=== PATIENT | female | born 1990 | race African-American/Black ===

== ENCOUNTER 2016-10-11 15:31 | Emergency (ER) | payer OTHER ==
[2016-10-11 15:43] VITALS: BP 127/66; PULSE 127; TEMP 98.6; BMI 31.7
[2016-10-11] MEDS ORDERED: LORazepam 1 MG TABLET PO ONE (16:28)
--- NOTE | 2016-10-11 16:31 | PDOC ---
History of Present Illness - General History Source: Patient, Old Records Exam Limitations: No Limitations - History of Present Illness Initial Comments: 10/11/16 17:20 The patient is a 26 year old female, with a significant past medical history of anxiety, depression and frequent panic attacks, who presents to the emergency department with left sided chest discomfort secondary to anxiety which began earlier today. The patient states that she has had increased stressors at home recently and notes that her symptoms feel similar to her prior panic attacks. The patient denies fever, chills, shortness of breath, nausea or vomiting. Allergies: None reported. Past Surgical History: Cardiac surgery x 1. Social History: Current everyday smoker. Denies alcohol or drug use. PCP: Dr. Diop <Annette Pizarro - Last Filed: 10/11/16 17:22> - General History Source: Patient Exam Limitations: No Limitations <Morgan Schuler - Last Filed: 10/11/16 18:37> - General Chief Complaint: Chest Pain Stated Complaint: CHEST PAIN/Anxiety Time Seen by Provider: 10/11/16 16:23 Past History <Annette Pizarro - Last Filed: 10/11/16 17:22> - Past Medical History Asthma: No Cancer: No Cardiac Disorders: No Diabetes: No HTN: Yes (states after ) Psychiatric Problems: Yes (Depression/Anxiety/Bipolar) Seizures: No Thyroid Disease: No - Surgical History Cardiac Surgery: Yes (x1) - Immunization History Immunization Up to Date: Yes - Psycho/Social/Smoking Cessation Hx Anxiety: No Suicidal Ideation: No Smoking History: Current every day smoker Have you smoked in the past 12 months: Yes Number of Cigarettes Smoked Daily: 10 Information on smoking cessation initiated: Yes 'Breaking Loose' booklet given: 10/11/16 Hx Alcohol Use: No Drug/Substance Use Hx: No Substance Use Type: None Hx Substance Use Treatment: No <Morgan Schuler - Last Filed: 10/11/16 18:37> - Past Medical History Allergies/Adverse Reactions: Allergies Allergy/AdvReac Type Severity Reaction Status Date / Time No Known Allergies Allergy Verified 10/11/16 15:40 Home Medications: Ambulatory Orders Duloxetine HCl [Cymbalta -] 120 mg PO DAILY 01/23/16 Lurasidone HCl [Latuda] 120 mg PO HS 01/23/16 Clonazepam [Klonopin] 2 mg PO DAILY 04/27/16 Dextroamphetamine/Amphetamine [Adderall 10 mg Tablet] 10 mg PO DAILY 04/27/16 Lorazepam [Ativan] 1 mg PO BID PRN #4 tablet MDD 2 10/11/16 Review of Systems - Review of Systems Able to Perform ROS?: Yes Comments:: 10/11/16 16:52 GENERAL/CONSTITUTIONAL: +Anxiety. No fever or chills. No weakness. HEAD, EYES, EARS, NOSE AND THROAT: No change in vision. No ear pain or discharge. No sore throat. CARDIOVASCULAR: +Chest discomfort. No shortness of breath. RESPIRATORY: No cough, wheezing, or hemoptysis. GASTROINTESTINAL: No nausea, vomiting, diarrhea or constipation. GENITOURINARY: No dysuria, frequency, or change in urination. MUSCULOSKELETAL: No joint or muscle swelling or pain. No neck or back pain. SKIN: No rash. NEUROLOGIC: No headache, vertigo, loss of consciousness, or change in strength/ sensation. ENDOCRINE: No increased thirst. No abnormal weight change. HEMATOLOGIC/LYMPHATIC: No anemia, easy bleeding, or history of blood clots. ALLERGIC/IMMUNOLOGIC: No hives or skin allergy. <Annette Pizarro - Last Filed: 10/11/16 17:22> *Physical Exam - Vital Signs Last Vital Signs Temp Pulse Resp BP Pulse Ox 98.6 F 127 H 18 127/66 98 10/11/16 15:39 10/11/16 15:39 10/11/16 15:39 10/11/16 15:39 10/11/16 15:39 - Physical Exam Comments: 10/11/16 16:37 GENERAL: Anxious. Awake, alert, and fully oriented, in no acute distress. HEAD: No signs of trauma. EYES: PERRLA, EOMI, sclera anicteric, conjunctiva clear. ENT: Auricles normal inspection, hearing grossly normal, nares patent, oropharynx clear without exudates. Moist mucosa. NECK: Normal ROM, supple, no lymphadenopathy, JVD, or masses. LUNGS: Breath sounds equal, clear to auscultation bilaterally. No wheezes, and no crackles. HEART: Regular rate and rhythm, normal S1 and S2, no murmurs, rubs or gallops. ABDOMEN: Soft, nontender, normoactive bowel sounds. No guarding, no rebound. No masses. EXTREMITIES: Normal range of motion, no edema. No clubbing or cyanosis. No cords , erythema, or tenderness. NEUROLOGICAL: Cranial nerves II through XII grossly intact. Normal speech, normal gait. SKIN: Warm, dry, normal turgor, no rashes or lesions noted. <Annette Pizarro - Last Filed: 10/11/16 17:22> - Vital Signs Last Vital Signs Temp Pulse Resp BP Pulse Ox 98.6 F 127 H 18 127/66 98 10/11/16 15:39 10/11/16 15:39 10/11/16 15:39 10/11/16 15:39 10/11/16 15:39 <Morgan Schuler - Last Filed: 10/11/16 18:37> Heart Score/ECG Review - History History: Slightly suspicious - Electrocardiogram EKG: Normal - Age Age: </= 45 - Risk Factors Based on the list above the patient has:: No risk factors known #1 ECG reviewed & interpreted by me at: 17:00 10/11/16 18:19 NSR 105, T wave flat III, normal axis, normal intervals, QTC 473 msec <Morgan Schuler - Last Filed: 10/11/16 18:37> Medical Decision Making - Medical Decision Making 10/11/16 16:29 A portion of this note was written by my scribe, under my supervision. Vital Signs Temp Pulse Resp BP Pulse Ox 98.6 F 127 H 18 127/66 98 10/11/16 15:39 10/11/16 15:39 10/11/16 15:39 10/11/16 15:39 10/11/16 15:39 26 year old female with history of anxiety and frequent panic attacks p/w anxiety. The patient reports that she has some stressors at home and that frequently manifests as left sided chest discomfort. No associated SOB. She reports that this is the same exact symptoms as all of her prior anxiety attacks. Denies SI/HI. Pt has not had her klonipin and is awaiting a psych appointment. She has no cardiac history. Though the HR is noted to be 127, I suspect this is likely 2/2 anxiety. Will obtain ECG and given ativan and reassess. If persistently tachycardic, will consider other diagnostic testing, ie blood tests. 10/11/16 18:34 The patient reports significant relief. HR has improved to mid 90s on my repeat physical exam. Will give her a 2 day supply and a referral to a psychiatrist. She will go home by cab. I discussed the physical exam findings, ancillary test results and final diagnoses with the patient. I answered all of the patient's questions. The patient was satisfied with the care received and felt comfortable with the discharge plan and treatment plan. The patient will call their primary care physician within 24 hours to arrange follow-up and will return to the Emergency Department with any new, persistant or worsening symptoms. <Morgan Schuler - Last Filed: 10/11/16 18:37> *DC/Admit/Observation/Transfer - Attestations Scribe Attestion: 10/11/16 16:37 Documentation prepared by Annette Pizarro, acting as medical scheduler for Morgan Schuler MD. <Annette Pizarro - Last Filed: 10/11/16 17:22> - Discharge Dispostion Admit: No <Morgan Schuler - Last Filed: 10/11/16 18:37> Diagnosis at time of Disposition: Anxiety - Discharge Dispostion Disposition: HOME Condition at time of disposition: Improved - Prescriptions Prescriptions: Lorazepam [Ativan] 1 mg PO BID PRN #4 tablet MDD 2 PRN Reason: Anxiety - Referrals Referrals: Shirley Diop MD [Primary Care Provider] - Dirk Balderas MD [Staff Physician] - - Patient Instructions Printed Discharge Instructions: DI for Anxiety -- Adult Additional Instructions: Please follow up with a psychiatrist.
[2016-10-11] MEDS ORDERED: LORazepam 0.5 MG TABLET ONE (17:57)
--- NOTE | 2016-10-12 09:27 | EKG ---
Test Reason : Blood Pressure : / mmHG Vent. Rate : 105 BPM Atrial Rate : 105 BPM P-R Int : 174 ms QRS Dur : 078 ms QT Int : 358 ms P-R-T Axes : 057 066 045 degrees QTc Int : 473 ms SINUS TACHYCARDIA POSSIBLE LEFT ATRIAL ENLARGEMENT NONSPECIFIC T WAVE ABNORMALITY WHEN COMPARED WITH ECG OF 11-OCT-2016 15:39, NO SIGNIFICANT CHANGE WAS FOUND Confirmed by ELVIE TOMAS MD ([id number]) on 10/12/2016 9:27:19 AM Referred By: Confirmed By:ELVIE TOMAS MD
--- NOTE | 2016-10-15 23:30 | EKG ---
Test Reason : Blood Pressure : / mmHG Vent. Rate : 117 BPM Atrial Rate : 117 BPM P-R Int : 156 ms QRS Dur : 080 ms QT Int : 334 ms P-R-T Axes : 057 060 020 degrees QTc Int : 465 ms SINUS TACHYCARDIA POSSIBLE LEFT ATRIAL ENLARGEMENT CANNOT RULE OUT ANTERIOR INFARCT , AGE UNDETERMINED ABNORMAL ECG WHEN COMPARED WITH ECG OF 27-APR-2016 13:20, T WAVE VARIATION VENT. RATE HAS INCREASED Confirmed by TYLER DUPONT, SILVIO ([id number]) on 10/15/2016 11:29:39 PM Referred By: Confirmed By:SILVIO SCOTT MD
== END 2016-10-11 19:12 | disposition home or self-care (01) ==
LOC: JER 15:31
DX: F41.9 Anxiety disorder, unspecified (principal); F41.8 Other specified anxiety disorders; F31.9 Bipolar disorder, unspecified; F17.210 Nicotine dependence, cigarettes, uncomplicated
CPT/HCPCS: 84703; 93005; 93010; 99284-25

== ENCOUNTER 2017-01-02 03:52 | Inpatient (IN) | payer OTHER ==
--- NOTE | 2017-01-02 04:16 | HP ---
COWS - Scale Resting Pulse: 1= MT 81-100 Sweatin=Flushed/Facial Moisture Restless Observation: 1= Difficult to Sit Still Pupil Size: 1= Pupils >than Normal Bone or Joint Aches: 1= Mild Discomfort Runny Nose/ Eye Tearin= Runny Nose/Eyes GI Upset > 30mins: 2= Nausea/Diarrhea Tremor Observation: 1= Tremor [place], Not Seen Yawning Observation: 1= 1-2x During Session Anxiety or Irritability: 2=Irritable/Anxious Goose Flesh Skin: 0=Smooth Skin COWS Score: 14 Admission ROS S - HPI Chief Complaint: WITHDRAWAL SYMPTOMS Allergies/Adverse Reactions: Allergies Allergy/AdvReac Type Severity Reaction Status Date / Time No Known Allergies Allergy Verified 01/02/17 06:08 History of Present Illness: 26 Y.O. WOMAN WITH A TWO YEAR HISTORY OF OPIATE DEPENDENCE IS SEEKING DETOX. THIS IS HER FIRST TIME IN DETOX BUT SHE HAS DONE REHAB PREVIOUSLY. Exam Limitations: No Limitations - Ebola screening Have you traveled outside of the country in the last 21 days: No - Review of Systems Constitutional: Chills, Diaphoresis, Loss of Appetite, Unintentional Wgt. Loss EENT: reports: Blurred Vision, Double Vision, Tearing, Dental Problems, Difficulty Swallowing Respiratory: reports: No Symptoms reported Cardiac: reports: Chest Pain (Intermittent-anxiety induced) GI: reports: No Symptoms Reported : reports: No Symptoms Reported Musculoskeletal: reports: Back Pain, Joint Pain Integumentary: reports: No Symptoms Reported Neuro: reports: Tingling (B/L fingertips) Endocrine: reports: No Symptoms Reported Hematology: reports: Anemia (BRI) Psychiatric: reports: Anxious, Depressed, other (PANIC ATTACKS, PTSD, BORDERLINE PERSONALITY DISORDER) Other Systems: Reviewed and Negative Patient History - Patient Medical History Hx Anemia: Yes (BRI ) Hx Asthma: No Hx Chronic Obstructive Pulmonary Disease (COPD): No Hx Cancer: No Hx Cardiac Disorders: No Hx Congestive Heart Failure: No Hx Hypertension: Yes (states after ) Hx Hypercholesterolemia: No Hx Pacemaker: No HX Cerebrovascular Accident: No Hx Seizures: No Hx Dementia: No Hx Diabetes: No Hx Gastrointestinal Disorders: Yes (GERD ) Hx Liver Disease: No Hx Sexually Transmitted Disorders: No Hx Renal Disease (ESRD): No Hx Thyroid Disease: No Hx Human Immunodeficiency Virus (HIV): No Hx Hepatitis C: No Hx Depression: Yes Hx Suicide Attempt: Yes (AT 25 Y.O. ATTEMPTED OVERDOSE ) Hx Bipolar Disorder: Yes (NO MEDS ) Hx Schizophrenia: No - Patient Surgical History Past Surgical History: Yes Hx Neurologic Surgery: No Hx Cataract Extraction: No Hx Cardiac Surgery: No Hx Lung Surgery: No Hx Breast Surgery: No Hx Breast Biopsy: No Hx Abdominal Surgery: No Hx Appendectomy: No Hx Cholecystectomy: No Hx Genitourinary Surgery: No Hx Section: Yes (01/22/2012) Hx Orthopedic Surgery: No Hx Hysterectomy: No Anesthesia Reaction: No - PPD History Previous Implant?: Yes Documented Results: Positive w/o proof Results: NEEDS CXR PPD to be Administered?: No - Reproductive History Patient is a Female of Child Bearing Age (11 -55 yrs old): Yes Last Menstrual Period: 12/15/15 LMP comment: IRREGULAR Patient : No - Smoking Cessation Smoking history: Current every day smoker Have you smoked in the past 12 months: Yes Aproximately how many cigarettes per day: 10 Hx Chewing Tobacco Use: No Initiated information on smoking cessation: Yes 'Breaking Loose' booklet given: 01/02/17 - Substance & Tx. History Hx Alcohol Use: No Hx Substance Use: Yes Substance Use Type: Heroin Hx Substance Use Treatment: Yes - Substances Abused Heroin Route: Injection Frequency: Daily Amount used: 1 BUNDLE Age of first use: 25 Date of Last Use: 01/02/17 Cocaine Route: Smoking Frequency: 3-6 times per week Amount used: $30 Age of first use: 16 Date of Last Use: 01/02/17 Marijuana/Hashish Route: Smoking Frequency: 1-2 times per week Amount used: $10 Age of first use: 13 Date of Last Use: 12/31/16 Family Disease History - Family Disease History Family Disease History: Heart Disease: Father (CRACK COCAINE ), Mother, Respiratory: Father, Other: Father Admission Physical Exam BHS - Vital Signs Vital Signs: Last Vital Signs Temp Pulse Resp BP Pulse Ox 96.0 F L 98 H 16 107/80 01/02/17 04:41 01/02/17 04:41 01/02/17 04:41 01/02/17 04:41 - Physical General Appearance: Yes: Tremorous, Irritable, Anxious HEENTM: Yes: Hearing grossly Normal, Normocephalic Respiratory: Yes: Lungs Clear, Normal Breath Sounds, No Respiratory Distress, No Accessory Muscle Use Neck: Yes: No masses,lesions,Nodules, Trachea in good position Breast: Yes: Breast Exam Deferred Cardiology: Yes: Regular Rhythm, Regular Rate, S1, S2 Abdominal: Yes: Flat, Soft Genitourinary: Yes: Other (NO COMPLAINTS REPORTED) Back: Yes: Normal Inspection Musculoskeletal: Yes: Gait Steady Extremities: Yes: Normal Inspection, Normal Range of Motion, Non-Tender Neurological: Yes: Alert, Normal Response Integumentary: Yes: Normal Color, Dry, Warm, Track Wei Lymphatic: Yes: Within Normal Limits - Diagnostic (1) Opioid dependence with withdrawal Current Visit: Yes Status: Chronic (2) Cocaine dependence, uncomplicated Current Visit: Yes Status: Chronic (3) Cannabis dependence, uncomplicated Current Visit: Yes Status: Chronic (4) Nicotine dependence Current Visit: Yes Status: Chronic Cleared for Admission S - Detox or Rehab [facility] Level of Care: Medically Managed Detox Regimen/Protocol: Methadone S Breath Alcohol Content Breath Alcohol Content: 0 Vital Signs - Vital Signs Vital Signs Refused: No Temperature: 96.0 F Temperature Source: Oral Pulse Rate: 98 Respiratory Rate: 16 Blood Pressure: 107/80 BP Location: Left Arm Blood Pressure Position: Sitting - Height Height: 5 ft 5 in - Weight Weight: 177 lb Weight Measurement Method: Standing Scale Body Mass Index (BMI): 29.4 Urine Pregancy Test - Test Device Lot Number: [id number] Expiration Date: 06/14/18 - Control Horizontal Line in Upper Control Window?: Yes - Result Urine Test Results: Negative- NO Line Present Urine Drug Screen - Test Device Lot Number: [id number] Expiration Date: 08/14/18 - Control Is Test Valid: Yes - Results Drug Screen Negative: No Urine Drug Screen Results: THC-Marijuana, ZACH-Cocaine, OPI-Opiates, PCP- Phencyclidine, BZO-Benzodiazepines
[2017-01-02 04:38] VITALS: BMI 29.4
[2017-01-02] MEDS ORDERED: guaiFENesin/D-METHORPHAN HB 10 ML UNIT-DOSE CUPS PO PRN (04:39)
[2017-01-02] MEDS ORDERED: IBUPROFEN 400 MG TABLET (FP) PO PRN (04:39)
[2017-01-02] MEDS ORDERED: MAG HYDROX/AL HYDROX/SIMETH 30 ML UNIT-DOSE CUP PO PRN (04:39)
[2017-01-02] MEDS ORDERED: MAGNESIUM CITRATE 300 ML BOTTLE PO PRN (04:39)
[2017-01-02] MEDS ORDERED: diazePAM 5 MG TABLET PO PRN (04:39)
[2017-01-02] MEDS ORDERED: ACETAMINOPHEN 325 MG TABLET (FP) PO PRN (04:39)
[2017-01-02] MEDS ORDERED: NICOTINE 10 MG CARTRIDGE (INHALER) IH PRN (04:39)
[2017-01-02] MEDS ORDERED: MAGNESIUM HYDROX 2400MG/30ML ORAL SUSPENSION 30 ML CUP PO PRN (04:39)
[2017-01-02] MEDS ORDERED: P-EPHED 60MG/TRIPROLIDI 2.5MG TABLET PO PRN (04:39)
[2017-01-02] MEDS ORDERED: NICOTINE POLACRILEX 2 MG GUM BC PRN (04:39)
[2017-01-02] MEDS ORDERED: MENTHOL/PHENOL 1 EACH UD MM PRN (04:39)
[2017-01-02] MEDS ORDERED: METHADONE HCL 10 MG TABLET (FOR DETOX USE ONLY) PO ONE ×3 (04:39→23:00)
[2017-01-02] MEDS ORDERED: LOPERAMIDE HCL 2 MG CAPSULE PO PRN (04:39)
[2017-01-02] MEDS ORDERED: hydrOXYzine PAMOATE 50 MG CAPSULE (FP) PO PRN (04:39)
[2017-01-02] MEDS ORDERED: diphenhydrAMINE HCL 50 MG CAPSULE PO PRN (04:39)
--- NOTE | 2017-01-02 08:37 | CONSULT ---
[facility] Psychiatric Consult - Data Date of interview: 01/02/17 Admission source: [facility] Identifying data: This is 26 years old female with psychiatric hospitalization history intoxicated with: Cocaine, Cannabis, Opioids and Nicotine Substance Abuse History: Smoking history: Current every day smoker. Have you smoked in the past 12 months: Yes. Aproximately how many cigarettes per day: 10. Hx Chewing Tobacco Use: No. Initiated information on smoking cessation: Yes. 'Breaking Loose' booklet given: 01/02/17. - Substance & Tx. History. Hx Alcohol Use: No. Hx Substance Use: Yes. Substance Use Type: Heroin. Hx Substance Use Treatment: Yes. - Substances Abused. Heroin. Route: Injection. Frequency: Daily. Amount used: 1 BUNDLE. Age of first use: 25. Date of Last Use: 01/02/17. Cocaine. Route: Smoking. Frequency: 3-6 times per week. Amount used: $30. Age of first use: 16. Date of Last Use: . Marijuana/Hashish. Route: Smoking. Frequency: 1-2 times per week. Amount used: $10. Age of first use: 13. Date of Last Use: 12/31/16 Medical History: Denies Psychiatric History: Patioent reports history of depression, reports no medications taking prior to admission, as per computer has been on Cymbalta 120mg poqd,. Patioent reports suicidal attempt taking bleach injestion on 2015 , reports psychiatric admission after thet. does not remember Hospital, reports no suicidal attempts since then. Refusing psychiastric iontervention, denies suicidal ideation as well Physical/Sexual Abuse/Trauma History: Denies, unclear Additional Comment: Observation. Detox Unit Care Protocol Mental Status Exam - Mental Status Exam Alert and Oriented to: Person Cognitive Function: Fair Patient Appearance: Unkempt Mood: Nervous, Anxious Affect: Labile Patient Behavior: Guarded, Distractible Speech Pattern: Appropriate Voice Loudness: Mildly Loud Thought Process: Circumstantial Thought Disorder: Being Controlled Hallucinations: Denies Suicidal Ideation: Denies Homicidal Ideation: Denies Sleep: Fair Appetite: Fair Muscle strength/Tone: Normal Gait/Station: Normal Additional Comments: Observation. Detox Unit Care Protocol Psychiatric Findings - Problem List ([place] 1, 2,3) (1) Cannabis dependence, uncomplicated Current Visit: Yes Status: Chronic (2) Cocaine dependence, uncomplicated Current Visit: Yes Status: Chronic (3) Nicotine dependence Current Visit: Yes Status: Chronic (4) Opioid dependence with withdrawal Current Visit: Yes Status: Chronic (5) Anxiety Current Visit: No Status: Acute (6) Ingestion of bleach Current Visit: No Status: Acute Qualifiers: Encounter type: initial encounter Injury intent: undetermined intent Qualified Code(s): T54.94XA - Toxic effect of unspecified corrosive substance , undetermined, initial encounter (7) Drug-induced mood disorder Current Visit: Yes Status: Acute (8) MDD (major depressive disorder) Current Visit: Yes Status: Suspected - Initial Treatment Plan Initial Treatment Plan: Observation. Detox Unit Care Protocol
[2017-01-02] MEDS ORDERED: PRENATAL VITAMINS W/ FOLIC ACID TABLET (FP) PO SCH (10:00)
[2017-01-02] MEDS ORDERED: PNEUMOCOCCAL 23 VACCINE 0.5 ML VIAL IM ONE (12:00)
[2017-01-02] MEDS ORDERED: INFLUENZA VACCINE 45 MCG/0.5 ML (MDV 16-17) IM ONE (12:00)
[2017-01-02] MEDS ORDERED: PNEUMOC 13-VAL CONJ-DIP CRM/PF 0.5 ML DISP.SYRIN IM ONE (12:00)
--- NOTE | 2017-01-02 12:33 | EKG ---
Test Reason : Blood Pressure : / mmHG Vent. Rate : 079 BPM Atrial Rate : 079 BPM P-R Int : 192 ms QRS Dur : 092 ms QT Int : 398 ms P-R-T Axes : 056 063 047 degrees QTc Int : 456 ms NORMAL SINUS RHYTHM NORMAL ECG WHEN COMPARED WITH ECG OF 11-OCT-2016 16:56, NONSPECIFIC T WAVE ABNORMALITY NO LONGER EVIDENT IN ANTEROLATERAL LEADS Confirmed by ASHANTI DUPONT, NORA ([id number]) on 01/02/2017 12:33:22 PM Referred By: Confirmed By:NORA BURRELL MD
[2017-01-02 14:35] VITALS: BP 104/58; PULSE 89; TEMP 97.5
--- NOTE | 2017-01-02 15:23 | DS ---
[facility] Detox Discharge Summary Admission Date: 01/02/17 - History Present History: Opioid Dependence - Physical Exam Results Vital Signs: Vital Signs Temperature 97.5 F L 01/02/17 14:34 Pulse Rate 89 01/02/17 14:34 Respiratory Rate 18 01/02/17 14:34 Blood Pressure 104/58 01/02/17 14:34 O2 Sat by Pulse Oximetry (%) - Treatment Hospital Course: Detox Protocol Followed - Medication Discharge Medications: Ambulatory Orders Duloxetine HCl [Cymbalta -] 120 mg PO DAILY 01/23/16 Lurasidone HCl [Latuda] 120 mg PO HS 01/23/16 Dextroamphetamine/Amphetamine [Adderall 10 mg Tablet] 10 mg PO DAILY 04/27/16 Quetiapine Fumarate [Seroquel] 100 mg PO HS #30 tablet 01/02/17 - Diagnosis (1) Cannabis dependence, uncomplicated Current Visit: Yes Status: Chronic (2) Cocaine dependence, uncomplicated Current Visit: Yes Status: Chronic (3) Nicotine dependence Current Visit: Yes Status: Chronic Qualifiers: Nicotine product type: cigarettes Substance use status: uncomplicated Qualified Code(s): F17.210 - Nicotine dependence, cigarettes, uncomplicated (4) Opioid dependence with withdrawal Current Visit: Yes Status: Chronic (5) Anxiety Current Visit: Yes Status: Chronic - AMA Did Patient Leave Against Medical Advice: Yes (can't stay , wants to leave )
[2017-01-02] MEDS ORDERED: THIAMINE HCL 100 MG TABLET (FP) PO SCH (22:00)
[2017-01-02] MEDS ORDERED: QUEtiapine FUMARATE 100 MG TABLET (FP) PO SCH (22:00)
[2017-01-03] MEDS ORDERED: METHADONE HCL 10 MG TABLET (FOR DETOX USE ONLY) PO ONE (10:00)
[2017-01-04] MEDS ORDERED: METHADONE HCL 5 MG TABLET (FOR DETOX USE ONLY) PO ONE (10:00)
[2017-01-05] MEDS ORDERED: METHADONE HCL 5 MG TABLET (FOR DETOX USE ONLY) PO ONE (10:00)
[2017-01-06] MEDS ORDERED: METHADONE HCL 10 MG TABLET (FOR DETOX USE ONLY) PO ONE (10:00)
[2017-01-07] MEDS ORDERED: METHADONE HCL 5 MG TABLET (FOR DETOX USE ONLY) PO ONE (06:00)
== END 2017-01-02 15:29 | disposition left against medical advice (07) | DRG 770 ==
LOC: YASAS 03:52 → Y6N 04:14
PROVIDERS: ADMIT Internal Medicine Addiction Medicine; ATTEND Internal Medicine Addiction Medicine
PROC: HZ2ZZZZ Detoxification Services for Substance Abuse Treatment (ICD-10-PCS; principal; 2017-01-02)
DX: F11.23 Opioid dependence with withdrawal (principal); F14.20 Cocaine dependence, uncomplicated; F12.20 Cannabis dependence, uncomplicated; F17.210 Nicotine dependence, cigarettes, uncomplicated; F41.9 Anxiety disorder, unspecified
CPT/HCPCS: 90732; 93005; 93010; G0009

== ENCOUNTER 2017-02-01 02:46 | Emergency (ER) | payer OTHER ==
[2017-02-01 02:58] VITALS: TEMP 98.4; BMI 26.6
[2017-02-01] MEDS ORDERED: LIDOCAINE HCL 1%, 10 MG/ML (50 mL VIAL) INF ONE (03:07)
[2017-02-01] MEDS ORDERED: LIDOCAINE HCL 2% (20ML MULTI-DOSE VIAL) NR ONE (03:18)
[2017-02-01 03:40] LABS: BASOPHIL 0.7 % (0-2.0); MCH 29.8 pg (25.7-33.7); MCHC 33.6 g/dl (32.0-36.0); MEAN CELL VOLUME 88.6 fl (80-96); MEAN PLT VOLUME 7.5 fl (7.5-11.1); NEUTROPHILS 53.5 % (42.8-82.8); PLATELET COUNT 290 K/MM3 (134-434); WHITE BLOOD COUNT 11.3 K/mm3 (4.0-10.0)
[2017-02-01 04:08] LABS: ALBUMIN 3.9 g/dl (3.4-5.0); ANION GAP 11 (8-16); BILIRUBIN,TOTAL 0.6 mg/dL (0.2-1.0); CALCIUM 8.8 mg/dL (8.5-10.1); CO2 26 mmol/L (21-32); COCKROFT - GAULT 98.5235; GLUCOSE,RANDOM 85 mg/dL (74-106); SGOT/AST 19 U/L (15-37); SGPT/ALT 15 U/L (12-78); TOT PROT 7.5 g/dl (6.4-8.2)
[2017-02-01 04:09] LABS: ALK PHOS 75 U/L (45-117)
[2017-02-01] MEDS ORDERED: CLINDAMYCIN 600MG PREMIX IVPB 50 ML IVPB ONE ×2 (04:14→04:18)
[2017-02-01] MEDS ORDERED: VANCOMYCIN 1,000 MG in DEXTROSE 5%-WATER - 250 ML IVPB ONE (04:14)
[2017-02-01] MEDS ORDERED: VANCOMYCIN 1 GRAM (PRE-DOCKED) 250 ML IVPB ONE (04:18)
--- NOTE | 2017-02-01 04:41 | PDOC ---
History of Present Illness - General Chief Complaint: Injury Stated Complaint: INTOX Time Seen by Provider: 02/01/17 03:00 History Source: Patient Exam Limitations: No Limitations - History of Present Illness Initial Comments: 02/01/17 04:36 26yo Female patient presents to ED c/o left arm abscess that developed yesterday morning. Patient states she believes she used a dirty needle. She also states last use of heroin 30 mins ago. Patient denies any other complaints at this time. Severity: moderate Associated Symptoms: denies: denies symptoms, chest pain, cough, diaphoresis, fever/chills, headaches, loss of appetite, malaise, nausea/vomiting, rash, seizure, shortness of breath, syncope, weakness, other Past History - Travel Traveled outside of the country in the last 30 days: No Close contact w/someone who was outside of country & ill: No - Past Medical History Allergies/Adverse Reactions: Allergies Allergy/AdvReac Type Severity Reaction Status Date / Time No Known Allergies Allergy Verified 02/01/17 02:56 Home Medications: Ambulatory Orders Duloxetine HCl [Cymbalta -] 120 mg PO DAILY 01/23/16 Lurasidone HCl [Latuda] 120 mg PO HS 01/23/16 Dextroamphetamine/Amphetamine [Adderall 10 mg Tablet] 10 mg PO DAILY 04/27/16 Quetiapine Fumarate [Seroquel] 100 mg PO HS #30 tablet 01/02/17 Cephalexin Monohydrate [Keflex -] 500 mg PO Q8H #30 capsule 02/01/17 Sulfamethoxazole/Trimethoprim [Bactrim Ds Tablet] 1 each PO Q12H #20 tablet Anemia: Yes (BRI ) Asthma: No Cancer: No Cardiac Disorders: No CVA: No COPD: No CHF: No Dementia: No Diabetes: No GI Disorders: Yes (GERD ) Disorders: No HTN: Yes (states after ) Hypercholesterolemia: No Liver Disease: No Psychiatric Problems: Yes (Depression/Anxiety/Bipolar) Suicide Attempt (Hx): Yes (AT 25 Y.O. ATTEMPTED OVERDOSE ) Seizures: No Thyroid Disease: No - Surgical History Abdominal Surgery: No Appendectomy: No Cardiac Surgery: No Cholecystectomy: No Lung Surgery: No Neurologic Surgery: No Orthopedic Surgery: No - Immunization History Immunization Up to Date: Yes - Psycho/Social/Smoking Cessation Hx Anxiety: No Suicidal Ideation: No Smoking History: Smoker current status UNK Have you smoked in the past 12 months: Yes Number of Cigarettes Smoked Daily: 10 Information on smoking cessation initiated: No 'Breaking Loose' booklet given: 01/02/17 Hx Alcohol Use: No Drug/Substance Use Hx: Yes (heroin) Substance Use Type: Alcohol Hx Substance Use Treatment: Yes Review of Systems - Review of Systems Able to Perform ROS?: Yes Is the patient limited Croatian proficient: No Constitutional: No: Chills, Fever Respiratory: No: Shortness of Breath, Stridor, Wheezing Cardiac (ROS): No: Chest Pain, Palpitations, Syncope, Chest Tightness ABD/GI: No: Constipated, Diarrhea, Nausea, Poor Appetite, Poor Fluid Intake, Vomiting : No: Burning, Dysuria, Hematuria Musculoskeletal: No: Back Pain Integumentary: Yes: Other (Abscess). No: Bruising, Rash Neurological: No: Headache All Other Systems: Reviewed and Negative *Physical Exam - Vital Signs Last Vital Signs Temp Pulse Resp BP Pulse Ox 98.4 F 100 H 16 129/74 98 02/01/17 02:57 02/01/17 02:57 02/01/17 02:57 02/01/17 02:57 02/01/17 02:57 - Physical Exam General Appearance: Yes: Nourished, Appropriately Dressed. No: Apparent Distress, Mild Distress, Moderate Distress, Severe Distress Neck: positive: Trachea midline, Supple. negative: Stridor, Lymphadenopathy (R) , Lymphadenopathy (L) Respiratory/Chest: positive: Lungs Clear, Normal Breath Sounds. negative: Chest Tender, Respiratory Distress, Accessory Muscle Use, Labored Respiration, Rapid RR Cardiovascular: positive: Regular Rhythm, Regular Rate Gastrointestinal/Abdominal: positive: Normal Bowel Sounds, Soft. negative: Distended, Guarding, Rebound, Tenderness Musculoskeletal: positive: Normal Inspection. negative: CVA Tenderness Extremity: positive: Normal Capillary Refill, Normal Inspection, Normal Range of Motion. negative: Pedal Edema, Swelling, Calf Tenderness, Erythema, Inflammation Integumentary: positive: Normal Color, Dry, Warm, Other (Left Arm Abscess w/ active purulent drainage. 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 intact, Fully Oriented, Alert, Normal Mood/ Affect, Normal Response, Motor Strength /5 ED Treatment Course - LABORATORY CBC & Chemistry Diagram: 05/20/17 03:20 02/01/17 03:20 - ADDITIONAL ORDERS Additional order review: Laboratory Results 02/01/17 03:20 Sodium 138 Potassium 4.2 Chloride 101 Carbon Dioxide 26 Anion Gap 11 BUN 8 Creatinine 1.0 Creat Clearance w eGFR > 60 Random Glucose 85 Calcium 8.8 Total Bilirubin 0.6 AST 19 D ALT 15 D Alkaline Phosphatase 75 D Total Protein 7.5 Albumin 3.9 02/01/17 03:20 RBC 3.86 MCV 88.6 MCHC 33.6 RDW 14.0 MPV 7.5 Neutrophils % 53.5 Lymphocytes % 34.4 Monocytes % 9.4 Eosinophils % 2.0 Basophils % 0.7 - Medications Given in the ED: ED Medications Discontinued Medications Generic Name Dose Route Start Last Admin Trade Name Freq PRN Reason Stop Dose Admin Lidocaine HCl 10 ml 02/01/17 03:07 02/01/17 04:21 Xylocaine 1% INF 02/01/17 03:08 10 ml ONCE ONE Administration *DC/Admit/Observation/Transfer Diagnosis at time of Disposition: Heroin use Skin abscess Qualifiers: Site of cutaneous abscess: extremity Site of cutaneous abscess of extremity: upper extremity Laterality: left Qualified Code(s): L02.414 - Cutaneous abscess of left upper limb - Discharge Dispostion Disposition: HOME Condition at time of disposition: Stable Admit: No - Prescriptions Prescriptions: Sulfamethoxazole/Trimethoprim [Bactrim Ds Tablet] 1 each PO Q12H #20 tablet Cephalexin Monohydrate [Keflex -] 500 mg PO Q8H #30 capsule - Patient Instructions Printed Discharge Instructions: DI for Skin Abscess Additional Instructions: FOLLOW UP WITH YOUR DOCTOR NEXT WEEK. CALL TO SCHEDULE APPOINTMENT. TAKE MEDICATIONS PRESCRIBED. STOP USING HEROIN AND YOU WILL NOT EXPERIENCE ABSCESSES TO AREAS ON YOUR BODY. Print Language: RWANDAN
[2017-02-01 06:39] VITALS: BP 120/72; PULSE 83
== END 2017-02-01 06:37 | disposition home or self-care (01) ==
LOC: JER 02:46
DX: L02.414 Cutaneous abscess of left upper limb (principal); F11.20 Opioid dependence, uncomplicated; I10 Essential (primary) hypertension; F31.9 Bipolar disorder, unspecified; D50.8 Other iron deficiency anemias; K21.9 Gastro-esophageal reflux disease without esophagitis
CPT/HCPCS: 36415; 80053; 85025; 87040; 87070; 87186; 87205; 96365; 96367; 99283-25

== ENCOUNTER 2017-04-11 16:07 | Inpatient (IN) | payer OTHER ==
[2017-04-11 16:57] VITALS: BMI 32.0
--- NOTE | 2017-04-11 20:21 | HP ---
COWS - Scale Resting Pulse: 1= ME 81-100 Sweatin=Flushed/Facial Moisture Restless Observation: 3= Extraneous Movement Pupil Size: 2= Moderately Dilated Bone or Joint Aches: 2= Severe Diffuse Aches Runny Nose/ Eye Tearin= Runny Nose/Eyes GI Upset > 30mins: 3= Vomiting/Diarrhea Tremor Observation: 2= Slight Tremor Visible Yawning Observation: 2= >3x During Session Anxiety or Irritability: 2=Irritable/Anxious Goose Flesh Skin: 0=Smooth Skin COWS Score: 21 Admission ROS S - HPI Chief Complaint: i am here need help to stop using drugs Allergies/Adverse Reactions: Allergies Allergy/AdvReac Type Severity Reaction Status Date / Time No Known Allergies Allergy Verified 04/11/17 19:12 History of Present Illness: this 27 years old female with heroin dependence,seeking help for detox,last treatment 01/02/17 not completed bipolar disorder nicotine dependence no significant period of sobriety - Ebola screening Have you traveled outside of the country in the last 21 days: No (N) Have you had contact with anyone from an Ebola affected area: No Have you been sick,other than usual withdrawal symptoms: No Do you have a fever: No - Review of Systems Constitutional: Chills, Loss of Appetite, Malaise, Night Sweats, Changes in sleep, Weakness EENT: reports: Tearing, Nose Congestion Respiratory: reports: No Symptoms reported Cardiac: reports: Palpitations GI: reports: Diarrhea, Vomiting, Abdominal cramping : reports: No Symptoms Reported Musculoskeletal: reports: Back Pain, Joint Pain, Joint Stiffness Integumentary: reports: Dryness Endocrine: reports: No Symptoms Reported Hematology: reports: No Symptoms Reported Psychiatric: reports: other (bipolar disorer) Patient History - Patient Medical History Hx Anemia: Yes (BRI ) Hx Asthma: No Hx Chronic Obstructive Pulmonary Disease (COPD): No Hx Cancer: No Hx Cardiac Disorders: No Hx Congestive Heart Failure: No Hx Hypertension: No Hx Hypercholesterolemia: No Hx Pacemaker: No HX Cerebrovascular Accident: No Hx Seizures: No Hx Dementia: No Hx Diabetes: No Hx Gastrointestinal Disorders: No Hx Liver Disease: No Hx Genitourinary Disorders: No Hx Sexually Transmitted Disorders: No Hx Renal Disease (ESRD): No Hx Thyroid Disease: No Hx Human Immunodeficiency Virus (HIV): No Hx Hepatitis C: No Hx Depression: Yes Hx Suicide Attempt: No Hx Bipolar Disorder: Yes (NO MEDS ) Hx Schizophrenia: No Other Medical History: no suicidal,no homicidal - Patient Surgical History Past Surgical History: No Hx Neurologic Surgery: No Hx Cataract Extraction: No Hx Cardiac Surgery: No Hx Lung Surgery: No Hx Breast Surgery: No Hx Breast Biopsy: No Hx Abdominal Surgery: No Hx Appendectomy: No Hx Cholecystectomy: No Hx Genitourinary Surgery: No Hx Section: Yes (2011) Hx Orthopedic Surgery: No Hx Hysterectomy: No Anesthesia Reaction: No - PPD History Previous Implant?: Yes Documented Results: Negative w/o proof Results: NEEDS CXR - Reproductive History Patient is a Female of Child Bearing Age (11 -55 yrs old): Yes Last Menstrual Period: 12/15/15 Patient : No - Smoking Cessation Smoking history: Current every day smoker Have you smoked in the past 12 months: Yes Aproximately how many cigarettes per day: 6 Hx Chewing Tobacco Use: No Initiated information on smoking cessation: Yes 'Breaking Loose' booklet given: 04/11/17 - Substance & Tx. History Hx Alcohol Use: No Hx Substance Use: Yes Substance Use Type: Heroin Hx Substance Use Treatment: Yes (01/02/17 not completed left same day) - Substances Abused Heroin Route: Inhalation Frequency: Daily Amount used: 6 bags Age of first use: 26 Date of Last Use: 04/11/17 Family Disease History - Family Disease History Family Disease History: Heart Disease: Father (CRACK COCAINE ), Mother, Respiratory: Father, Other: Father Admission Physical Exam BHS - Vital Signs Vital Signs: Vital Signs - 24 hr 04/11/17 16:42 Temperature 97.7 F Pulse Rate 97 H Respiratory 18 Rate Blood Pressure 122/86 - Physical General Appearance: Yes: Moderate Distress, Tremorous, Irritable, Sweating, Anxious HEENTM: Yes: Within Normal Limits, Hearing grossly Normal, LAURIE, Pharynx Normal Respiratory: Yes: Lungs Clear, Normal Breath Sounds, No Respiratory Distress Neck: Yes: Within Normal Limits, Supple, Trachea in good position Breast: Yes: Breast Exam Deferred Cardiology: Yes: Within Normal Limits, Regular Rhythm, Regular Rate, S1, S2 Abdominal: Yes: Within Normal Limits, Normal Bowel Sounds, Non Tender, Flat, Soft Genitourinary: Yes: Within Normal Limits Musculoskeletal: Yes: full range of Motion, Back pain, Muscle Pain Extremities: Yes: Normal Range of Motion, Tremors Neurological: Yes: Within Normal Limits, 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, Fully Oriented, Alert, Motor Strength 5/5 Integumentary: Yes: Dry Lymphatic: Yes: Within Normal Limits - Diagnostic (1) Opioid dependence with withdrawal Current Visit: No Status: Chronic (2) Cocaine dependence, uncomplicated Current Visit: No Status: Chronic (3) Nicotine dependence Current Visit: No Status: Chronic Qualifiers: Nicotine product type: cigarettes Substance use status: uncomplicated Qualified Code(s): F17.210 - Nicotine dependence, cigarettes, uncomplicated (4) Bipolar disorder Current Visit: Yes Status: Acute Cleared for Admission [facility] - Detox or Rehab [facility] Level of Care: Medically Managed Detox Regimen/Protocol: Methadone S Breath Alcohol Content Breath Alcohol Content: 0 Urine Drug Screen - Results Drug Screen Negative: No Urine Drug Screen Results: ZACH-Cocaine, OPI-Opiates, BZO-Benzodiazepines
[2017-04-11] MEDS ORDERED: METHADONE HCL 10 MG TABLET (FOR DETOX USE ONLY) PO ONE ×2 (20:41→23:00)
[2017-04-11] MEDS ORDERED: diphenhydrAMINE HCL 50 MG CAPSULE PO PRN (20:41)
[2017-04-11] MEDS ORDERED: ACETAMINOPHEN 325 MG TABLET (FP) PO PRN (20:41)
[2017-04-11] MEDS ORDERED: MAG HYDROX/AL HYDROX/SIMETH 30 ML UNIT-DOSE CUP PO PRN (20:41)
[2017-04-11] MEDS ORDERED: P-EPHED 60MG/TRIPROLIDI 2.5MG TABLET PO PRN (20:41)
[2017-04-11] MEDS ORDERED: MAGNESIUM CITRATE 300 ML BOTTLE PO PRN (20:41)
[2017-04-11] MEDS ORDERED: LOPERAMIDE HCL 2 MG CAPSULE PO PRN (20:41)
[2017-04-11] MEDS ORDERED: MENTHOL/PHENOL 1 EACH UD MM PRN (20:41)
[2017-04-11] MEDS ORDERED: MAGNESIUM HYDROX 2400MG/30ML ORAL SUSPENSION 30 ML CUP PO PRN (20:41)
[2017-04-11] MEDS ORDERED: guaiFENesin/D-METHORPHAN HB 10 ML UNIT-DOSE CUPS PO PRN (20:41)
[2017-04-11] MEDS ORDERED: IBUPROFEN 400 MG TABLET (FP) PO PRN (20:41)
[2017-04-11] MEDS: THIAMINE HCL 100 MG TABLET (FP) PO SCH (21:23)
[2017-04-11] MEDS: diazePAM 5 MG TABLET PO PRN (21:23)
[2017-04-11] MEDS: hydrOXYzine PAMOATE 25 MG CAPSULE (FP) PO PRN (21:23)
[2017-04-12 01:48] LABS: URINE APPEARANCE CLOUDY; URINE BILIRUBIN NEGATIVE (NEGATIVE); URINE BLOOD 1+ (NEGATIVE); URINE COLOR YELLOW; URINE GLUCOSE (UA) NEGATIVE (NEGATIVE); URINE KETONE NEGATIVE (NEGATIVE); URINE NITRITE NEGATIVE (NEGATIVE); URINE PROTEIN NEGATIVE (NEGATIVE); URINE UROBILINOGEN NEGATIVE mg/dL (0.2-1.0)
[2017-04-12 01:49] LABS: URINE LEUK ESTERASE 3+ (NEGATIVE)
[2017-04-12 02:01] LABS: URINE BACTERIA RARE /hpf (NONE SEEN); URINE MUCUS RARE; URINE RBC 4 /hpf (0-3); URINE WBC 5 /hpf (3-5); YEAST FEW
[2017-04-12] MEDS ORDERED: METHADONE HCL 10 MG TABLET (FOR DETOX USE ONLY) PO ONE ×2 (10:00→16:05)
--- NOTE | 2017-04-12 12:19 | PN ---
BHS COWS - Scale Resting Pulse: 0= OR 80 or Below Sweatin=Flushed/Facial Moisture Restless Observation: 1= Difficult to Sit Still Pupil Size: 0= Normal to Room Light Bone or Joint Aches: 1= Mild Discomfort Runny Nose/ Eye Tearin= Nasal Congestion GI Upset > 30mins: 2= Nausea/Diarrhea Tremor Observation of Outstretched Hands: 2= Slight Tremor Visible Yawning Observation: 1= 1-2x During Session Anxiety or Irritability: 2=Irritable/Anxious Goose Flesh Skin: 0=Smooth Skin COWS Score: 12 BHS Progress Note (SOAP) Subjective: Pt. has her head under the bed sheet refusing to answer most of my questions.Pt. is irritable,anxious,sweating. Objective: 04/12/17 12:18 Vital Signs - 8 hr 04/12/17 06:00 Temperature 97.5 F L Pulse Rate 71 Respiratory 18 Rate Blood Pressure 122/74 Laboratory Tests 04/11/17 22:48 Urine Color Yellow Urine Appearance Cloudy Urine pH 7.0 D Ur Specific [place] 1.015 Urine Protein Negative Urine Glucose (UA) Negative Urine Ketones Negative Urine Blood 1+ H Urine Nitrite Negative Urine Bilirubin Negative Urine Urobilinogen Negative Ur Leukocyte Esterase 3+ H Urine RBC 4 Urine WBC 5 Ur Epithelial Cells Moderate Urine Bacteria Rare Urine Mucus Rare Urine Yeast Few U/A noted,labs pending. Assessment: 04/12/17 12:19 Withdrawal sx. Plan: Continue detox
--- NOTE | 2017-04-12 14:55 | CONSULT ---
[facility] Psychiatric Consult - Data Date of interview: 04/12/17 Admission source: [facility] Identifying data: THis is a 27 year old Black female, with one child, unemployed and domiciled. Substance Abuse History: Patient reports using heroin 5-6 bags a day,smoking cigarettes 6 a day. She denies using other drugs but Urine Drug Screen Results positive for Cocaine, Opiates and Benzodiazepines. Medical History: in 2011. Psychiatric History: Patient is poor historian due to sedation, she admts being treated for anxiety and depression with Cymbalta, which she stopped year ago. When patient was to continue /restart med.she reported she does not need it now. Physical/Sexual Abuse/Trauma History: denies Mental Status Exam - Mental Status Exam Alert and Oriented to: Person Cognitive Function: Impaired Patient Appearance: Unkempt Affect: Blunted Patient Behavior: Sedated Speech Pattern: Slurred Thought Disorder: Not Present Hallucinations: Denies Suicidal Ideation: Denies Homicidal Ideation: Denies Insight/Judgement: Impaired Sleep: Fair Appetite: Fair Psychiatric Findings - Problem List ([place] 1, 2,3) (1) Drug-induced mood disorder Current Visit: No Status: Acute - Initial Treatment Plan Initial Treatment Plan: continue detox. protocol, observation.
[2017-04-12] MEDS: PRENATAL VITAMINS W/ FOLIC ACID TABLET (FP) PO SCH (14:59)
[2017-04-12] MEDS: diazePAM 5 MG TABLET PO PRN (15:45)
[2017-04-12] MEDS: THIAMINE HCL 100 MG TABLET (FP) PO SCH (22:55)
[2017-04-13] MEDS ORDERED: METHADONE HCL 5 MG TABLET (FOR DETOX USE ONLY) PO ONE (10:00)
[2017-04-13 10:33] LABS: ALBUMIN 3.3 g/dl (3.4-5.0); ANION GAP 7 (8-16); BILIRUBIN,TOTAL 0.6 mg/dL (0.2-1.0); CALCIUM 9.1 mg/dL (8.5-10.1); CO2 26 mmol/L (21-32); CREATININE 0.8 mg/dL (0.55-1.02); GLUCOSE,RANDOM 84 mg/dL (74-106); SGOT/AST 13 U/L (15-37); SGPT/ALT 19 U/L (12-78); TOT PROT 6.6 g/dl (6.4-8.2)
[2017-04-13 10:34] LABS: ALK PHOS 68 U/L (45-117); MCH 30.6 pg (25.7-33.7); MCHC 33.4 g/dl (32.0-36.0); MEAN CELL VOLUME 91.6 fl (80-96); MEAN PLT VOLUME 8.2 fl (7.5-11.1); PLATELET COUNT 302 K/MM3 (134-434); RDW 13.3 % (11.6-15.6); WHITE BLOOD COUNT 5.6 K/mm3 (4.0-10.0)
[2017-04-13] MEDS: diazePAM 5 MG TABLET PO PRN ×2 (10:58→18:15)
[2017-04-13] MEDS: PRENATAL VITAMINS W/ FOLIC ACID TABLET (FP) PO SCH (10:59)
--- NOTE | 2017-04-13 11:01 | PN ---
BHS COWS - Scale Resting Pulse: 0= [place] 80 or Below Sweatin=Flushed/Facial Moisture Restless Observation: 1= Difficult to Sit Still Pupil Size: 0= Normal to Room Light Bone or Joint Aches: 1= Mild Discomfort Runny Nose/ Eye Tearin= Runny Nose/Eyes GI Upset > 30mins: 2= Nausea/Diarrhea Tremor Observation of Outstretched Hands: 2= Slight Tremor Visible Yawning Observation: 1= 1-2x During Session Anxiety or Irritability: 2=Irritable/Anxious Goose Flesh Skin: 0=Smooth Skin COWS Score: 13 BHS Progress Note (SOAP) Subjective: Anxiety,sweating,interrupted sleep,restless,tremors Objective: 04/13/17 11:02 Vital Signs - 8 hr 04/13/17 04/13/17 04/13/17 03:30 06:00 06:30 Temperature 97.5 F L Pulse Rate 72 Respiratory 18 18 18 Rate Blood Pressure 108/55 Laboratory Tests 04/11/17 04/13/17 04/13/17 22:48 07:45 07:45 WBC 5.6 D RBC 4.01 Hgb 12.3 Hct 36.7 MCV 91.6 MCH 30.6 MCHC 33.4 RDW 13.3 Plt Count 302 MPV 8.2 Sodium 140 Potassium 4.5 Chloride 107 Carbon Dioxide 26 Anion Gap 7 L BUN 13 D Creatinine 0.8 Creat Clearance w eGFR > 60 Random Glucose 84 Calcium 9.1 Total Bilirubin 0.6 AST 13 L D ALT 19 D Alkaline Phosphatase 68 Total Protein 6.6 Albumin 3.3 L Urine Color Yellow Urine Appearance Cloudy Urine pH 7.0 D Ur Specific [place] 1.015 Urine Protein Negative Urine Glucose (UA) Negative Urine Ketones Negative Urine Blood 1+ H Urine Nitrite Negative Urine Bilirubin Negative Urine Urobilinogen Negative Ur Leukocyte Esterase 3+ H Urine RBC 4 Urine WBC 5 Ur Epithelial Cells Moderate Urine Bacteria Rare Urine Mucus Rare Urine Yeast Few labs noted Assessment: 04/13/17 11:03 Withdrawal sx. Plan: Continue detox
[2017-04-13 11:34] LABS: HIV 1 & 2 AB NEGATIVE; HIV 1 AGp24 NEGATIVE
[2017-04-13] MEDS: BACITRACIN 15 GM TUBE TOPICAL OINTMENT TP SCH ×2 (12:27→22:21)
[2017-04-13] MEDS: hydrOXYzine PAMOATE 25 MG CAPSULE (FP) PO PRN (18:16)
[2017-04-13] MEDS: THIAMINE HCL 100 MG TABLET (FP) PO SCH (22:22)
[2017-04-14 09:59] VITALS: BP 105/73; PULSE 68; TEMP 98.1
[2017-04-14] MEDS ORDERED: METHADONE HCL 5 MG TABLET (FOR DETOX USE ONLY) PO ONE (10:00)
[2017-04-14] MEDS ORDERED: METHADONE HCL 10 MG TABLET (FOR DETOX USE ONLY) PO ONE (10:00)
--- NOTE | 2017-04-14 10:00 | PN ---
BHS Progress Note (SOAP) Subjective: agitation irritable interrupted sleep Objective: 04/14/17 09:59 Vital Signs Temperature 98.1 F 04/14/17 09:59 Pulse Rate 68 04/14/17 09:59 Respiratory Rate 18 04/14/17 09:59 Blood Pressure 105/73 04/14/17 09:59 O2 Sat by Pulse Oximetry (%) awake/alert lying in bed no acute distress Assessment: 04/14/17 10:00 withdrawal sx Plan: continue detox increase fluids d/c in am
--- NOTE | 2017-04-14 10:00 | EKG ---
Test Reason : Blood Pressure : / mmHG Vent. Rate : 072 BPM Atrial Rate : 072 BPM P-R Int : 160 ms QRS Dur : 082 ms QT Int : 386 ms P-R-T Axes : 055 068 040 degrees QTc Int : 422 ms SINUS RHYTHM WITH MARKED SINUS ARRHYTHMIA OTHERWISE NORMAL ECG WHEN COMPARED WITH ECG OF 02-JAN-2017 04:04, NO SIGNIFICANT CHANGE WAS FOUND Confirmed by SILVIO SCOTT MD ([id number]) on 04/14/2017 9:59:11 AM Referred By: Confirmed By:SILVIO SCOTT MD
[2017-04-14] MEDS: PRENATAL VITAMINS W/ FOLIC ACID TABLET (FP) PO SCH (11:55)
[2017-04-14] MEDS: BACITRACIN 15 GM TUBE TOPICAL OINTMENT TP SCH (11:55)
[2017-04-14] MEDS: diazePAM 5 MG TABLET PO PRN (13:57)
--- NOTE | 2017-04-14 16:44 | PN ---
S Progress Note Note: CALLED BY NURSE,PATIENT DID NOT WANT TO COMPLETE TREATMENT,SIGNED RELEASE AMA, SEEN BY COUNSELOR,DID NOT WANT TO WAIT
--- NOTE | 2017-04-14 16:49 | DS ---
[facility] Detox Discharge Summary Admission Date: 04/11/17 Discharge Date: 04/14/17 - History Present History: Opioid Dependence Additional Comments: PATIENT DID NOT WANT TO COMPLETE TREATMENT,SIGNED RELEASE AMA,DID NOT WANT TO WAIT,SEEN Y COUNSELOR Pertinent Past History: NICOTINE DEPENDENCE BIPOLAR DISORDER - Physical Exam Results Vital Signs: Vital Signs Temperature 98.1 F 04/14/17 09:59 Pulse Rate 68 04/14/17 09:59 Respiratory Rate 18 04/14/17 09:59 Blood Pressure 105/73 04/14/17 09:59 O2 Sat by Pulse Oximetry (%) Pertinent Admission Physical Exam Findings: WITHDRAWAL SYMPTOM - Medication Discharge Medications: Ambulatory Orders Duloxetine HCl [Cymbalta -] 120 mg PO DAILY 01/23/16 Lurasidone HCl [Latuda] 120 mg PO HS 01/23/16 Dextroamphetamine/Amphetamine [Adderall 10 mg Tablet] 10 mg PO DAILY 04/27/16 Quetiapine Fumarate [Seroquel] 100 mg PO HS #30 tablet 01/02/17 Cephalexin Monohydrate [Keflex -] 500 mg PO Q8H #30 capsule 02/01/17 Sulfamethoxazole/Trimethoprim [Bactrim Ds Tablet] 1 each PO Q12H #20 tablet - Diagnosis (1) Opioid dependence with withdrawal Current Visit: No Status: Chronic (2) Cocaine dependence, uncomplicated Current Visit: No Status: Chronic (3) Nicotine dependence Current Visit: No Status: Chronic Qualifiers: Nicotine product type: cigarettes Substance use status: uncomplicated Qualified Code(s): F17.210 - Nicotine dependence, cigarettes, uncomplicated (4) Bipolar disorder Current Visit: Yes Status: Acute (5) S/P section Current Visit: Yes Status: Acute - AMA Did Patient Leave Against Medical Advice: Yes
[2017-04-15] MEDS ORDERED: METHADONE HCL 5 MG TABLET (FOR DETOX USE ONLY) PO ONE (06:00)
[2017-04-15] MEDS ORDERED: METHADONE HCL 10 MG TABLET (FOR DETOX USE ONLY) PO ONE (10:00)
[2017-04-16] MEDS ORDERED: METHADONE HCL 5 MG TABLET (FOR DETOX USE ONLY) PO ONE (06:00)
== END 2017-04-14 17:05 | disposition left against medical advice (07) | DRG 770 ==
LOC: YASAS 16:07 → Y6N 19:29
PROVIDERS: ADMIT Internal Medicine; ATTEND Surgery
PROC: HZ2ZZZZ Detoxification Services for Substance Abuse Treatment (ICD-10-PCS; principal; 2017-04-11)
DX: F11.23 Opioid dependence with withdrawal (principal); F14.20 Cocaine dependence, uncomplicated; F17.210 Nicotine dependence, cigarettes, uncomplicated; F31.9 Bipolar disorder, unspecified; F19.24 Other psychoactive substance dependence with psychoactive substance-induced mood disorder; D50.9 Iron deficiency anemia, unspecified
CPT/HCPCS: 36415; 80053; 81003; 81015; 85027; 86593; 87389; 93005; 93010

== ENCOUNTER 2017-06-16 02:40 | Emergency (ER) | payer OTHER ==
--- NOTE | 2017-06-16 02:57 | PDOC ---
History of Present Illness - General History Source: Patient Exam Limitations: No Limitations - History of Present Illness Initial Comments: 06/16/17 05:09 The patient is a 27 year old female with a significant past medical history of Anemia, GERD, HTN, PSA who presents to the ED with symmetric numbness in her fingertips in both hands. Patient states she has been experiencing the numbness for 2 or 3 weeks. Patient states she snorted heroin earlier in the day. Denies intravenous drug use, but per our EMR has used drugs intravenously in the past. Patient denies chest pain, SOB, fever, chills, nausea, vomiting, diarrhea. Denies dysuria, frequency, hematuria. <Alen Short - Last Filed: 06/16/17 05:09> <Real Gagnon - Last Filed: 06/16/17 06:30> - General Stated Complaint: NUMBNESS IN FINGERTIPS Time Seen by Provider: 06/16/17 02:56 Past History <Alen Short - Last Filed: 06/16/17 05:09> - Past Medical History Anemia: Yes (BRI ) Asthma: No Cancer: No Cardiac Disorders: No CVA: No COPD: No CHF: No Dementia: No Diabetes: No GI Disorders: No Disorders: No HTN: No Hypercholesterolemia: No Kidney Stones: No Liver Disease: No Psychiatric Problems: Yes (Depression/Anxiety/Bipolar) Seizures: No Thyroid Disease: No - Surgical History Abdominal Surgery: No Appendectomy: No Cardiac Surgery: No Cholecystectomy: No Lung Surgery: No Neurologic Surgery: No Orthopedic Surgery: No - Immunization History Immunization Up to Date: Yes - Suicide/Smoking/Psychosocial Hx Smoking History: Current every day smoker Have you smoked in the past 12 months: Yes Number of Cigarettes Smoked Daily: 6 'Breaking Loose' booklet given: 04/11/17 Hx Alcohol Use: No Drug/Substance Use Hx: Yes Substance Use Type: Heroin Hx Substance Use Treatment: Yes (01/02/17 not completed left same day) <Real Gagnon - Last Filed: 06/16/17 06:30> - Past Medical History Allergies/Adverse Reactions: Allergies Allergy/AdvReac Type Severity Reaction Status Date / Time No Known Allergies Allergy Verified 06/16/17 02:58 Home Medications: Ambulatory Orders NK [No Known Home Medication] 06/16/17 Review of Systems - Review of Systems Able to Perform ROS?: Yes Comments:: 06/16/17 05:10 GENERAL/CONSTITUTIONAL: No fever or chills. No weakness. HEAD, EYES, EARS, NOSE AND THROAT: No change in vision. No ear pain or discharge. No sore throat. CARDIOVASCULAR: No chest pain or shortness of breath. RESPIRATORY: No cough, wheezing, or hemoptysis. GASTROINTESTINAL: No nausea, vomiting, diarrhea or constipation. GENITOURINARY: No dysuria, frequency, or change in urination. MUSCULOSKELETAL: No joint or muscle swelling or pain. No neck or back pain. SKIN: No rash NEUROLOGIC: + numbness to fingers in both hands. No headache, vertigo, loss of consciousness.. ENDOCRINE: No increased thirst. No abnormal weight change. HEMATOLOGIC/LYMPHATIC: No anemia, easy bleeding, or history of blood clots. ALLERGIC/IMMUNOLOGIC: No hives or skin allergy. <Alen Short - Last Filed: 06/16/17 05:09> *Physical Exam - Vital Signs Last Vital Signs Temp Pulse Resp BP Pulse Ox 98.3 F 105 H 18 108/61 100 06/16/17 02:58 06/16/17 02:58 06/16/17 02:58 06/16/17 02:58 06/16/17 02:58 - Physical Exam Comments: 06/16/17 05:11 GENERAL: Sleepy but arousable, fully oriented, in no acute distress HEAD: No signs of trauma EYES: pupils pinpoint, symmetric, EOMI, sclera anicteric, conjunctiva clear ENT: Auricles normal inspection, hearing grossly normal, nares patent, oropharynx clear without exudates. Moist mucosa NECK: Normal ROM, supple, no lymphadenopathy, JVD, or masses LUNGS: Breath sounds equal, clear to auscultation bilaterally. No wheezes, and no crackles. RR 14 HEART: Regular rate and rhythm, normal S1 and S2, no murmurs, rubs or gallops ABDOMEN: Soft, nontender, normoactive bowel sounds. No guarding, no rebound. No masses EXTREMITIES: Normal range of motion, no edema. No clubbing or cyanosis. No cords, erythema, or tenderness NEUROLOGICAL: Normal speech, cranial nerves intact, negative pronator drift, 5/ 5 strength in all 4 extremities, normal sensation to light touch in all 4 extremities, normal cerebellar exam, gait deferred, normal reflexes and tone SKIN: Multiple healed scars on bilateral forearms. No signs of erythema, warmth , or abscess on skin <Alen Short - Last Filed: 06/16/17 05:09> Medical Decision Making - Medical Decision Making 06/16/17 04:19 27-year-old female with a history of polysubstance abuse presents with bilateral upper extremity numbness and tingling for 2-3 weeks. Vitals and exam are unremarkable, other than current intoxication after heroin use. Pt also reports she is newly homeless for 3 days and has no where to go. She requests to speak with a director of social media marketing. -labs -upt/ua -reassess 06/16/17 06:29 Pt refused labs, UA, and UPT. Reports improvement in b/l UE tingling. On re- evaluation, pt ambulating in ED with assistance. Slightly unsteady gait. Reports she would like to speak with a director of social media marketing as she is homeless. Will hold until SW arrives. <Real Gagnon - Last Filed: 06/16/17 06:30> *DC/Admit/Observation/Transfer - Attestations Scribe Attestion: 06/16/17 05:12 Documentation prepared by Alen Short, acting as medical or surgical instrument maker for Real Gagnon MD, . <Alen Short - Last Filed: 06/16/17 05:09>
[2017-06-16 02:59] VITALS: TEMP 98.3; BMI 29.2
--- NOTE | 2017-06-16 08:35 | PDOC ---
*Physical Exam - Vital Signs Last Vital Signs Temp Pulse Resp BP Pulse Ox 98.3 F 105 H 18 108/61 100 06/16/17 02:58 06/16/17 02:58 06/16/17 02:58 06/16/17 02:58 06/16/17 02:58 Medical Decision Making - Medical Decision Making 06/16/17 08:28 Pt signed out to me by Dr. Gagnon pending social work. Given long-term list by social work. Will discharge. *DC/Admit/Observation/Transfer Diagnosis at time of Disposition: Opiate abuse, continuous - Discharge Dispostion Disposition: HOME Admit: No - Patient Instructions Printed Discharge Instructions: Chemical Dependency (Narcotic) (Alternative Therapy) Additional Instructions: return to the ED for new or worsening symptoms.
[2017-06-16 08:38] VITALS: BP 132/88; PULSE 77
== END 2017-06-16 09:29 | disposition home or self-care (01) ==
LOC: JER 02:40
DX: I10 Essential (primary) hypertension (principal); K21.9 Gastro-esophageal reflux disease without esophagitis; D50.8 Other iron deficiency anemias; Z59.0 Homelessness
CPT/HCPCS: 99282-25